=== PATIENT | female | born 1970 | race Caucasian/White ===

== ENCOUNTER 2023-08-08 15:26 | Outpatient (REF) | payer SELFPAY | END 2023-08-08 15:27 | disposition home or self-care (01) | LOC: CF 15:26 | PROVIDERS: Visit Provider Nurse Practitioner Family | DX: Z13.89 Encounter for screening for other disorder (principal) ==

== ENCOUNTER → 2023-08-15 14:13 | Outpatient (BNV) | payer BC, SELFPAY | PROVIDERS: PCP Internal Medicine; Visit Provider Internal Medicine Medical Oncology | DX: Z80.3 Family history of malignant neoplasm of breast (principal) | CPT/HCPCS: 99204; 99213 ==

== ENCOUNTER 2023-09-12 16:33 | Outpatient (REF) | payer BC, SELFPAY ==
--- NOTE | ~2023-09-12 | MR_ITS ---
EXAMINATION: MR BREAST WITHOUT AND WITH CONTRAST, BILATERAL CLINICAL INFORMATION: 52-year-old for high-risk screening lifetime risk greater than 20%. Family history mother, maternal grandmother and maternal great grandmother. COMPARISON: Correlation to mammogram and ultrasound 07/01/2023. TECHNIQUE: Imaging was performed with a dedicated breast coil. Prior to the administration of contrast, bilateral axial T1 and bilateral axial T2 weighted sequences were obtained. After the uneventful administration of?10 mL of Gadavist, dynamic contrast-enhanced VIBRANT series through the breasts in the axial plane were performed. Subtracted images were performed and reviewed. A delayed sagittal sequence through both breasts was acquired. Additionally, CAD post-processing, including maximum intensity projections, 3-D reconstructions and kinetic analysis, were performed an independent workstation and reviewed by the interpreting radiologist is a portion of this exam. FINDINGS: The patient's fibroglandular tissue demonstrates minimal background enhancement. There is distortion of the anterior aspect of the breast within the breast coil. LEFT BREAST: No suspicious mass-like or nonmass-like enhancement. No abnormal skin thickening or nipple retraction. There are scattered foci of enhancement demonstrating subthreshold and progressive kinetics. There are no suspicious findings in the area of concern in the medial aspect of the breast on the prior mammogram. No abnormal architectural distortion. Review of the T2 weighted images demonstrates no fibrocystic changes or dilated ducts. Review of kinetic images reveals no additional findings. RIGHT BREAST: No suspicious mass-like or nonmass-like enhancement. No abnormal skin thickening or nipple retraction. There are scattered foci of enhancement demonstrating subthreshold and progressive kinetics. No abnormal architectural distortion. Review of the T2 weighted images demonstrates no fibrocystic changes or dilated ducts. Review of kinetic images reveals no additional findings. There is no suspicious internal mammary chain or axillary adenopathy. Limited views of the chest and abdomen are unremarkable. MR/MR breast BI wo/w con IMPRESSION: No MR specific evidence of malignancy. ASSESSMENT: LEFT BREAST: BI-RADS 1-Negative RIGHT BREAST: BI-RADS 1-Negative RECOMMENDATIONS: Routine mammographic imaging as per most recent study and MRI as per high-risk protocol.
[2023-09-12] MEDS: gadobutroL 10 ML VIAL IVPUSH (17:38)
== END 2023-09-12 16:34 | disposition home or self-care (01) ==
LOC: HO.MRI 16:33
PROVIDERS: PCP Internal Medicine; Visit Provider Internal Medicine Medical Oncology
DX: Z12.39 Encounter for other screening for malignant neoplasm of breast (principal); Z80.3 Family history of malignant neoplasm of breast
CPT/HCPCS: 77049; A9585